=== PATIENT | male | born 1940 | race Caucasian/White ===

== ENCOUNTER 2022-05-11 12:26 | Outpatient (CLI) | payer OTHER ==
[~2022-05-11 12:26] MED LIST: APIX5TAB3 PO; ATOR40TA PO; CARV3.122 PO; CHOL500050 PO; CYAN50009 PO; LISI5TAB22 PO
== END 2022-05-11 23:59 | disposition home or self-care (01) ==
LOC: RAD 12:26
PROVIDERS: ATTEND Chiropractor
DX: I05.8 Other rheumatic mitral valve diseases (principal); I25.9 Chronic ischemic heart disease, unspecified; I48.91 Unspecified atrial fibrillation
CPT/HCPCS: 93306

== ENCOUNTER 2023-03-22 22:19 | Emergency (ER) | payer OTHER, MEDICARE ==
[~2023-03-22] VITALS: Ht 177.8 cm; Wt 115.9 kg
--- NOTE | 2023-03-22 22:35 | NUR ---
Danielle (Patients daughter.)
[2023-03-23 00:31] VITALS: BP 158/77; PULSE 61; TEMP 98.7; O2SAT 96
[2023-03-23] MEDS ORDERED: ketorolac tromethamine 15mg/ml inj. IM ONE (00:55)
[2023-03-23] MEDS ORDERED: HYDROcodone/acetaminophen 10/325mg tab PO ONE (00:55)
[2023-03-23] MEDS ORDERED: HYDR-3965 PO (01:31)
[2023-03-23 02:37] VITALS: RESP 18
== END 2023-03-23 02:42 | disposition home or self-care (01) ==
LOC: ER 22:20
DX: M25.551 Pain in right hip (principal); M25.552 Pain in left hip; G89.29 Other chronic pain; M54.9 Dorsalgia, unspecified; E78.00 Pure hypercholesterolemia, unspecified; I10 Essential (primary) hypertension; N18.6 End stage renal disease
CPT/HCPCS: 73502; 96372; 99283; J1885